=== PATIENT | male | born 1990 | race Caucasian/White ===

== ENCOUNTER 2024-02-10 22:50 | Emergency (ER) | payer OTHER ==
[~2024-02-10] VITALS: Ht 185.4 cm; Wt 77.1 kg
[2024-02-11] MEDS ORDERED: TDAP [DIPH/PERTUSSIS/TET] 0.5 ML VIAL IM ONE (00:25)
[2024-02-11] MEDS ORDERED: BACITRACIN ZINC OINT PACKET 1 EA PACKET TP ONE (00:37)
[2024-02-11] MEDS: TDAP [DIPH/PERTUSSIS/TET] 0.5 ML VIAL IM ONE (00:40)
[2024-02-11] MEDS: BACITRACIN ZINC OINT (15 GM) 15 GM TUBE TP STA (00:41)
[2024-02-11 00:45] VITALS: BP 128/72; TEMP 98; O2SAT 100
== END 2024-02-11 00:45 | disposition home or self-care (01) ==
LOC: ER 22:54
DX: S09.8XXA Other specified injuries of head, initial encounter (principal); Z88.1 Allergy status to other antibiotic agents; W22.8XXA Striking against or struck by other objects, initial encounter; Y93.89 Activity, other specified; Y92.89 Other specified places as the place of occurrence of the external cause; Y99.8 Other external cause status
CPT/HCPCS: 90715